=== PATIENT | male | born 1995 | race Caucasian/White ===

== ENCOUNTER 2017-04-23 11:38 | Emergency (ER) | payer BC ==
[~2017-04-23] VITALS: Ht 177.8 cm; Wt 85.7 kg
[2017-04-23 11:50] VITALS: BP 160/82; Ht 177.8 cm; Wt 85.7 kg
== END 2017-04-23 12:11 | disposition home or self-care (01) ==
LOC: ED 11:38
DX: H10.9 Unspecified conjunctivitis (principal); Z88.0 Allergy status to penicillin

== ENCOUNTER 2017-04-27 12:55 | Emergency (ER) | payer BC ==
[~2017-04-27] VITALS: Ht 177.8 cm; Wt 72.6 kg
[2017-04-27 14:08] VITALS: BP 117/81; Ht 177.8 cm; Wt 72.6 kg
== END 2017-04-27 16:50 | disposition home or self-care (01) ==
LOC: ED 12:55
DX: S05.01XA Injury of conjunctiva and corneal abrasion without foreign body, right eye, initial encounter (principal); H10.9 Unspecified conjunctivitis; Z88.0 Allergy status to penicillin; X58.XXXA Exposure to other specified factors, initial encounter; Y93.89 Activity, other specified; Y92.89 Other specified places as the place of occurrence of the external cause; Y99.8 Other external cause status